=== PATIENT | female | born 1965 | race Caucasian/White ===

== ENCOUNTER 2022-02-12 14:51 | Emergency (ER) | payer BC ==
[2022-02-12 14:57] VITALS: BP 186/89
[2022-02-12] MEDS ORDERED: TETANUS/DIPHTHERIA/PERTUSSIS 0.5 ML SYRINGE IM ONE (15:22)
--- NOTE | 2022-02-12 15:23 | ED Physician Documentation ---
PD HPI LOWER EXT INJURY - Stated complaint Stated Complaint: LT FT INJ - Chief complaint Chief Complaint: Laceration - History obtained from History obtained from: Patient (Otherwise healthy 56-year-old woman stepped on a piece of metal outside through her shoe and hit the bottom of the left foot. Pain is at most mild. No other injuries. Tetanus is unknown.) Review of Systems Constitutional: reports: Reviewed and negative Eyes: reports: Reviewed and negative Cardiac: reports: Reviewed and negative Respiratory: reports: Reviewed and negative PD PAST MEDICAL HISTORY - Allergies Allergies/Adverse Reactions: Allergies Allergy/AdvReac Type Severity Reaction Status Date / Time Iodinated Contrast Media Allergy Itching Verified 02/12/22 14:58 strawberry Allergy Cramps Verified 02/12/22 14:58 PD ED PE NORMAL - Vitals Vital signs reviewed: Yes - General General: Alert and oriented X 3, No acute distress - Extremities Extremities: Other (Small puncture wound without tenderness near the bottom of the fourth metatarsal bottom of left foot. Painless range of motion of all the toes.) - Neuro Neuro: Alert and oriented X 3, Normal speech Results - Vitals Vitals: Vital Signs - 24 hr 02/12/22 14:54 Temperature 36.2 C L Heart Rate 71 Respiratory 16 Rate Blood Pressure 186/89 H O2 Saturation 8 L PD MEDICAL DECISION MAKING - ED course ED course: We discussed antibiotics prophylactically but after discussion she declined which I think is fine since she is otherwise healthy and it seems like a minor wound. Tetanus was updated. Departure - Departure Disposition: 01 Home, Self Care Clinical Impression: Puncture wound of plantar aspect of left foot Qualifiers: Encounter type: initial encounter Qualified Code(s): S91.332A - Puncture wound without foreign body, left foot, initial encounter Condition: Good Record reviewed to determine appropriate education?: Yes Instructions: ED Wound Puncture General Comments: Note for your records that you received a tetanus vaccination today. Return or go to the closest ER or urgent care if you develop severe pain, fevers, or other concerns.
== END 2022-02-12 15:44 | disposition home or self-care (01) ==
LOC: ED 14:51
DX: S91.332A Puncture wound without foreign body, left foot, initial encounter (principal); W26.8XXA Contact with other sharp object(s), not elsewhere classified, initial encounter; Z23 Encounter for immunization; Z71.85 Encounter for immunization safety counseling
CPT/HCPCS: 90471; 99282; 99283